=== PATIENT | female | born 1955 | race Caucasian/White ===

== ENCOUNTER → 2017-04-19 | Outpatient (CLI) | payer BC ==
--- NOTE | 2017-04-19 15:47 | RADIOLOGY IMAGING REPORT ---
FACILITY: [facility] - [place] PATIENT NAME: Kerri Villegas : 1955 MR: [id number] V: [id number] EXAM DATE: ORDERING PHYSICIAN: SURENDRA HAUSER TECHNOLOGIST: Location: [facility] Patient: Kerri Villegas : 1955 Visit/Account:[id number] Date of Sevice: 04/19/2017 DEXA Scan Clinical history: Postmenopausal. Comparison: DEXA scan from 09/06/2005. LUMBAR SPINE: The bone mineral density (BMD) measured from L1-L4 correlates with a Z-score of 0.4 and a T-score of -0.1 which is Normal as defined by the World Health Organization. The corresponding risk of fracture in the lumbar spine is Not increased compared with a young adult reference population. This value h as decreased by 11.1 % since the prior study. More than 5% change is considered significant. HIP: Bone mineral density (BMD) measured in the LEFT total hip region correlates with a Z-score 1.3 and a T-score of 0.8 which is normal as defined by the World Health Organization. The corresponding risk of fracture in the hip is Not i ncreased compared to a young adult reference population. This value has decrease by 9.7 % since the p rior study. More than 5% change is considered significant. T score left femoral neck zero Bone mineral density (BMD) measured in the Femoral Neck region measures 1.044 g/cm?. IMPRESSION: 1. Lumbar spine: Normal. There has been 11.1% decrease in the bone mineral density since the previo us exam. 2. Left Total Hip: Normal. There has been 9.7% decrease in the bone mineral density since the previ ous exam. 3. Femoral Neck: Bone Mineral Density is 1.044 g/cm? The next DEXA scan of this patient should include the following sites: L1-L4 and the left hip. FRAX? WHO Fracture Risk Assessment Tool link: <http://www.shef.ac.uk/FRAX/tool.jsp?locationValue=9> PLEASE NOTE: 1) The World Health Organization defines low BMD as follows: T-score Normal > -1 Osteopenia < -1 and > -2.5 Osteoporosis < -2.5 without fractures Established osteoporosis < -2.5 with fractures 2) In general, you may wish to consider: Diagnosis Treatment Follow-up DEXA Normal BMD Prevention 2-3 years Osteopenia Prevention/therapy 1-2 years Osteoporosis Therapy Yearly 3) Fracture risk estimated from the T-score is more accurate for vertebral fractures (often spontane ous) than for hip fractures. Report Dictated By: Lor Forbes MD at 04/19/2017 3:42 PM Report E-Signed By: Lor Forbes MD at 04/19/2017 3:43 PM WSN:[email or web address]
--- NOTE | 2017-04-20 08:27 | RADIOLOGY IMAGING REPORT ---
FACILITY: [facility] PATIENT NAME: HIRO ALVARADO : [id number] MR: [id number] V: [id number] EXAM DATE: [id number] ORDERING PHYSICIAN: SURNEDRA HAUSER TECHNOLOGIST: Flori Sierra PROCEDURE:BILATERAL DIGITAL SCREENING MAMMOGRAM WITH CAD ASSISTED INTERPRETATION AND 3D BREAST TOMOSYNTHESIS. COMPARISON:Prior mammograms dated 03/28/16, 02/24/15, 12/30/13, 07/30/12, 06/26/11 and 06/22/10. INDICATIONS:SCREENING. FINDINGS: A small amount of fibroglandular tissue is seen throughout the breasts. The parenchymal pattern has remained stable when allowing for difference in mammographic technique and patient positioning. There is no evidence of malignant appearing mass, malignant appearing calcification or other secondary sign of malignancy in either breast. DIAGNOSTIC CATEGORY 1--NEGATIVE. RECOMMENDATIONS: ROUTINE MAMMOGRAM AND CLINICAL EVALUATION. IMPRESSION: Bi-RADS 1: No significant abnormality is seen. Images were reviewed with R2CAD and 3D breast tomosynthesis. Dictated by: Lor Forbes M.D. on 04/19/2017 at 16:50 Transcribed by: GRECIA on 04/19/2017 at 18:56 Approved by: Lor Forbes M.D. on 04/20/2017 at 8:25 [facility]
== END ==
LOC: RAD 01:08
PROVIDERS: ATTEND Nurse Practitioner Family
DX: Z12.31 Encounter for screening mammogram for malignant neoplasm of breast (principal); Z78.0 Asymptomatic menopausal state
CPT/HCPCS: 77063; 77067; 77080

== ENCOUNTER → 2018-05-16 | Outpatient (CLI) | payer BC ==
--- NOTE | 2018-05-16 16:45 | RADIOLOGY IMAGING REPORT ---
FACILITY: [facility] PATIENT NAME: HIRO ALVARADO : [id number] MR: [id number] V: [id number] EXAM DATE: ORDERING PHYSICIAN: SURENDRA HAUSER TECHNOLOGIST: Flori Sierra PROCEDURE:BILATERAL DIGITAL SCREENING MAMMOGRAM WITH CAD ASSISTED INTERPRETATION & 3D TOMOSYNTHESIS COMPARISON:Prior mammograms 04/19/17, 03/28/16, 02/24/15, 12/30/13, 07/30/12, 06/26/11. INDICATIONS:screening FINDINGS: The breasts are almost entirely fatty. The parenchymal pattern has remained stable allowing for difference in mammographic technique & patient positioning. There is no evidence of malignant appearing mass, malignant appearing calcifications or other secondary sign of malignancy in either breast. DIAGNOSTIC CATEGORY 1--NEGATIVE. RECOMMENDATIONS: ROUTINE MAMMOGRAM AND CLINICAL EVALUATION. IMPRESSION: BIRADS 1: Negative. No significant abnormality is seen. Dictated by: Lor Forbes M.D. on 05/16/2018 at 8:55 Transcribed by: JOSE ANTONIO on 05/16/2018 at 9:01 Approved by: Lor Forbes M.D. on 05/16/2018 at 16:44 [facility]
== END ==
LOC: MAMO 00:34
PROVIDERS: ATTEND Nurse Practitioner Family
DX: Z12.31 Encounter for screening mammogram for malignant neoplasm of breast (principal)
CPT/HCPCS: 77063; 77067

== ENCOUNTER → 2018-05-31 | Outpatient (CLI) | payer BC ==
--- NOTE | 2018-05-31 14:07 | RADIOLOGY IMAGING REPORT ---
[place] [facility] [place] Kerri Villegas : 1955 MR: [id number] V: [id number] EXAM DATE: ORDERING PHYSICIAN: SURENDRA HAUSER TECHNOLOGIST: Location[place] [facility] [place] Patient: Kerri Villegas : 1955 Visit/Account:[id number] Date of Sevice: 05/31/2018 Transvaginal/transabdominal pelvic ultrasound. HISTORY: Postmenopausal bleeding, hormone pellets. COMPARISON: None. The uterus measures 9.7 cm in length. The endometrial stripe is homogeneous measuring 5.5 mm in thic kness. A few small nabothian cysts are present along the internal cervical os. No free fluid. The adnexal vessels are unremarkable. The right ovary is unremarkable measuring 1.6 cm in length. The l eft ovary is not visualized. Portions of the pelvis are obscured by bowel gas. IMPRESSION: Negative uterus and right ovary. Nonvisualization of the left ovary. Report Dictated By: Nito Vergara MD at 05/31/2018 2:01 PM Report E-Signed By: Nito Vergara MD at 05/31/2018 2:03 PM WSN:[email or web address]
== END ==
LOC: US 07:10
PROVIDERS: ATTEND Nurse Practitioner Family
DX: N88.8 Other specified noninflammatory disorders of cervix uteri (principal)
CPT/HCPCS: 76856